=== PATIENT | female | born 1970 | race Caucasian/White ===

== ENCOUNTER 2017-10-25 12:46 | Emergency (ER) | payer MEDICAID, SELFPAY ==
[2017-10-25 12:55] VITALS: PULSE 70; RESP 18; TEMP 37.7; O2SAT 95; BMI 28.3
[2017-10-25 14:59] VITALS: BP 111/67; PULSE 109; RESP 18; TEMP 36.8; O2SAT 93; BMI 26.4
--- NOTE | 2017-10-25 15:14 | XR_ITS ---
XR chest 2V HISTORY: ITS.REASON: COUGH ORDERING PHYSICIAN: Daily Mcgee PATIENT AGE: 47 years COMPARISON: 07/15/2017 FINDINGS: The cardiomediastinal silhouette and pulmonary vascularity are within normal limits. There is dense consolidation involving the right upper lobe centrally and laterally as well as consolidation in the right lower lobe consistent with right-sided pneumonia. Left lung is clear. No obvious effusion There is severe wedging of L2 with kyphosis at the thoracolumbar junction. . This was seen on previous MRI of 02/23/2012 IMPRESSION: Right upper and right lower lobe pneumonia Wedge compression changes involving L2 which is chronic with kyphosis
[2017-10-25 15:17] LABS: UTC Influenza A Antigen Negative (Negative); UTC Influenza B Antigen Negative (Negative)
--- NOTE | 2017-10-25 16:08 | HMH.EDUTC ---
[facility] [place] Clinical Impression: Pneumonia involving right lung Qualifiers: Pneumonia type: due to unspecified organism Lung location: unspecified part of lung Qualified Code(s): J18.9 - Pneumonia, unspecified organism Disposition: Still a Patient Condition on Discharge: Fair Time of Disposition: 16:34 (transfer to ER) Medical Decision Making Vital Signs: 10/25/17 12:55 10/25/17 14:59 Temperature 99.8 F H 98.2 F Temperature Source Temporal Artery Scan Temporal Artery Scan Pulse Rate [Left Brachial] 70 109 H Respiratory Rate 18 18 Blood Pressure [123/78] 111/67 Blood Pressure Mean [123/78] 81 Blood Pressure Source [123/78] Automatic Cuff Automatic Cuff Blood Pressure Position [123/78] Supine Sitting 02 Sat by Pulse Oximetry 85 L 93 L Oxygen Delivery Method Room Air Room Air - Lab Data Lab Results 10/25/17 15:16: Influenza Type A Ag Negative, Influenza Type B Ag Negative - Physician Consults Physician Consulted: Amaya Rodriguez APRN Time: 16:25 Reason -: Pt condition Comment/Response: Dr. Cat not available, spoke to REAGAN Conde. Discussed PMHx, HPI, today's VS and exam and CXR results. Wants transfer to ER for full PNA workup to include but not limited to CBC, cr, lactic. Call oncall with results and they will decide at that time about admission. Additional Consult: Dr. Smith, ARTISTIC DIRECTOR Time: 16:30 Reason -: Pt condition Comment/Response: Discussed PMHx, HPI, exam, VS and CXR as well as discussion w/ PCP. Will work patient up and contact oncall provider regarding admission. - Bulmaro Inquiry Pt receiving controlled substance: No [facility] [place] - General Stated complaint: cough fever Time Seen by Provider: 10/25/17 16:08 Mode of Arrival: Ambulatory Source of Information: Patient Limitations: No Limitations Description of Symptoms (Recalled from Triage Doc. by RN): FEVER, COUGH, CONGESTION X2 DAYS HEENT Symptoms (Recalled from RN notes): Yes Resp Symptoms (Recalled from RN notes): No Skin Symptoms (Recalled from RN notes): No MS Symptoms (Recalled from RN notes): No Functional Status (Recalled from RN notes): N - History of Present Illness Provider Complaint: c/o fever and cough. Worried about flu or pneumonia. Started with fever and mild cough last night. 102-104. Cough worse today. Yellow sputum. Fever side sawyer has helped. last dose before coming to clinic. Pt w/ same symptoms fall 2016. I saw pt here in [facility], pt was admitted, later decompensated on floor and was airlifted to where she reports she stayed for nearly 2 weeks. Reporting mild SOA but not bad . Hx of tobacco abuse. - Related Data Home Medications Medication Instructions Recorded Confirmed Cyclobenzaprine HCl [Flexeril 10mg 10 mg PO BID 10/25/17 10/25/17 tablet] Nitrofurantoin Monohyd/M-Cryst 100 mg PO DAILY 10/25/17 10/25/17 [Macrobid 100 mg Capsule] Oxycodone HCl/Acetaminophen 1 tab PO BID 10/25/17 10/25/17 [Percocet 5/325mg tablet] buPROPion HCl [Wellbutrin 100mg 50 mg PO BID 10/25/17 10/25/17 Tablet] clonazePAM [Klonopin 0.5mg tablet] 0 mg PO DAILY 10/25/17 10/25/17 Allergies Allergy/AdvReac Type Severity Reaction Status Date / Time Iodinated Contrast Media - Allergy Unknown I-ITCHING Verified 10/25/17 15:05 Oral and [Iodinated Contrast Media - IV Dye] - Worker's Comp Is this a Worker's Comp case?: No [facility] History I have reviewed the patient's past medical history: Yes Medical History: Reports:: Chronic Obstructive Pulmonary Disease (COPD) Comment: anxiety, chronic pain, spinal surgery Other Surgeries: Yes: Other (unknown spinal surgery, aspeenic) - *Social History Smoking Status: Current every day smoker Tobacco Type: cigarettes Alcohol Intake: never - Psychiatric History Expresses thoughts of harming self/others: None Suicide Plan Description: No Plan ROS Obtained: Yes All systems reviewed & no additional complaints except as noted - Constitutional Reports
--- NOTE | 2017-10-25 16:14 | ED_ITS ---
[facility] [place] Disposition Clinical Impression: Pneumonia involving right lung Qualifiers: Pneumonia type: due to unspecified organism Lung location: unspecified part of lung Qualified Code(s): J18.9 - Pneumonia, unspecified organism Disposition: Still a Patient Condition on Discharge: Fair Time of Disposition: 16:34 (transfer to ER) Medical Decision Making Vital Signs: 10/25/17 12:55 10/25/17 14:59 Temperature 99.8 F H 98.2 F Temperature Source Temporal Artery Scan Temporal Artery Scan Pulse Rate [Left Brachial] 70 109 H Respiratory Rate 18 18 Blood Pressure [123/78] 111/67 Blood Pressure Mean [123/78] 81 Blood Pressure Source [123/78] Automatic Cuff Automatic Cuff Blood Pressure Position [123/78] Supine Sitting 02 Sat by Pulse Oximetry 85 L 93 L Oxygen Delivery Method Room Air Room Air - Lab Data Lab Results 10/25/17 15:16: Influenza Type A Ag Negative, Influenza Type B Ag Negative - Physician Consults Physician Consulted: Amaya Rodriguez APRN Time: 16:25 Reason -: Pt condition Comment/Response: Dr. Cat not available, spoke to REAGAN Conde. Discussed PMHx, HPI, today's VS and exam and CXR results. Wants transfer to ER for full PNA workup to include but not limited to CBC, cr, lactic. Call oncall with results and they will decide at that time about admission. Additional Consult: Dr. Smith, PORTFOLIO MANAGER Time: 16:30 Reason -: Pt condition Comment/Response: Discussed PMHx, HPI, exam, VS and CXR as well as discussion w / PCP. Will work patient up and contact oncall provider regarding admission. - Bulmaro Inquiry Pt receiving controlled substance: No [facility] [place] HPI - General Stated complaint: cough fever Time Seen by Provider: 10/25/17 16:08 Mode of Arrival: Ambulatory Source of Information: Patient Limitations: No Limitations Description of Symptoms (Recalled from Triage Doc. by RN): FEVER, COUGH, CONGESTION X2 DAYS HEENT Symptoms (Recalled from RN notes): Yes Resp Symptoms (Recalled from RN notes): No Skin Symptoms (Recalled from RN notes): No MS Symptoms (Recalled from RN notes): No Functional Status (Recalled from RN notes): N - History of Present Illness Provider Complaint: c/o fever and cough. Worried about flu or pneumonia. Started with fever and mild cough last night. 102-104. Cough worse today. Yellow sputum. Fever social sciences research scientist has helped. last dose before coming to clinic. Pt w / same symptoms fall 2016. I saw pt here in [facility], pt was admitted, later decompensated on floor and was airlifted to where she reports she stayed for nearly 2 weeks. Reporting mild SOA but not bad . Hx of tobacco abuse. - Related Data Home Medications Medication Instructions Recorded Confirmed Cyclobenzaprine HCl [Flexeril 10mg 10 mg PO BID 10/25/17 10/25/17 tablet] Nitrofurantoin Monohyd/M-Cryst 100 mg PO DAILY 10/25/17 10/25/17 [Macrobid 100 mg Capsule] Oxycodone HCl/Acetaminophen 1 tab PO BID 10/25/17 10/25/17 [Percocet 5/325mg tablet] buPROPion HCl [Wellbutrin 100mg 50 mg PO BID 10/25/17 10/25/17 Tablet] clonazePAM [Klonopin 0.5mg tablet] 0 mg PO DAILY 10/25/17 10/25/17 Allergies Allergy/AdvReac Type Severity Reaction Status Date / Time Iodinated Contrast Media - Allergy Unknown I-ITCHING Verified 10/25/17 15:05 Oral and [Iodinated Contrast Media - IV Dye] - Wo
[2017-10-25 16:44] VITALS: BP 105/70; PULSE 106; RESP 20; TEMP 37; O2SAT 91; BMI 26.4
[2017-10-25 17:06] LABS: ABG HCO3 22.7 mmhg (22.0-26.0); ABG Oxygen Saturation 92 % (90-100); ABG PCO2 37.2 mmhg (35.0-45.0); ABG PO2 60.8 mmhg (80-100); ABG TCO2 23.9 mmhg (23-27); Allen's Test ACCEPTABLE; Oxygen ROOM AIR %
[2017-10-25 17:07] LABS: Source R RADIAL
--- NOTE | 2017-10-25 17:50 | HMH.EDSOB ---
ED Disposition Clinical Impression: Pneumonia involving right lung Qualifiers: Pneumonia type: due to unspecified organism Lung location: unspecified part of lung Qualified Code(s): J18.9 - Pneumonia, unspecified organism Sepsis Qualifiers: Sepsis type: sepsis due to unspecified organism Qualified Code(s): A41.9 - Sepsis, unspecified organism Disposition: Xfer Short-Term Hosp Condition on Discharge: Serious Referrals: Jace Cat MD [Primary Care Provider] - Time of Disposition: 20:00 - Critical Care Critical Care Time: Yes Attestation: On 10/25/17, the high probability of a clinically significant, sudden or life threatening deterioration of the following system(s) required my full and direct attention, intervention and personal management. The time I documented below is in addition to time spent performing reported procedures but includes the following listed in this critical care notation. Multiple consultations, multiple rechecks, multiple d/w patient and interventions. Total Critical Care Time: 55 Vital system(s) involved:: Circulatory Failure, Respiratory Failure, Shock (Septic) My critical care processes included: Assessment & monitoring of V/S, Initial and Re-exams, Data Review/Interpretation, Coordinating Care, Medication Orders and management, Documentation Medical Decision Making Vital Signs: 10/25/17 12:55 10/25/17 14:59 10/25/17 16:44 Temperature 99.8 F H 98.2 F 98.6 F Temperature Source Temporal Artery Scan Temporal Artery Scan Oral Pulse Rate [Left Brachial] 70 109 H 106 H Respiratory Rate 18 18 20 Blood Pressure [123/78] 111/67 105/70 Blood Pressure Mean [123/78] 81 81 Blood Pressure Source [123/78] Automatic Cuff Automatic Cuff Automatic Cuff Blood Pressure Position [123/78] Supine Sitting Sitting 02 Sat by Pulse Oximetry 95 93 L 91 L Oxygen Delivery Method Room Air Room Air Room Air - Lab Data Lab Results 10/25/17 15:16: Influenza Type A Ag Negative, Influenza Type B Ag Negative 10/25/17 17:03: Specimen Source R radial, O2 % Room air, ABG pH 7.40, ABG pCO2 37.2, ABG pO2 60.8 L, ABG HCO3 22.7, ABG Total CO2 23.9, ABG O2 Saturation 92, ABG Base Excess -2.0, Jensen Test Acceptable 10/25/17 17:05: WBC 30.9 H*, RBC 4.21, Hgb 12.9, Hct 41.7, MCV 99.0, MCH 30.8, MCHC 31.1 L, RDW 14.3, Plt Count 393, MPV 8.1, Neut % (Auto) 78.7, Lymph % (Auto) 16.4, [place] % (Auto) 3.8, Eos % (Auto) 0.6, Baso % (Auto) 0.5, Neut # (Auto) 24.3 H, Lymph # (Auto) 5.1 H, [place] # (Auto) 1.2 H, Eos # (Auto) 0.2, Baso # (Auto) 0.2, Total Counted 200, Neutrophils % (Manual) 62, Band Neutrophils % 6.0, Lymphocytes % (Manual) 20, Monocytes % (Manual) 9, Metamyelocytes % 3.5 H, Platelet Estimate Normal, RBC Morphology Not Reportable, Hypochromasia 1+, Macrocytosis 1+ 10/25/17 17:05: Sodium 136, Potassium 3.8, Chloride 102, Carbon Dioxide 26, Anion Gap 11.8, BUN 12, Creatinine 0.89, Estimated Creat Clear 79, Estimated GFR > 60, Est GFR ( Amer) > 60, Glucose 110 H, Calcium 8.6, Total Bilirubin 0.5, AST 50 H, ALT 59, Alkaline Phosphatase 93, Total Protein 7.3, Albumin 3.0 L, Globulin 4.3 H, Albumin/Globulin Ratio 0.7 L 10/25/17 17:05: Lactic Acid 2.1 H Result diagrams: 10/25/17 17:05 10/25/17 17:05 Orders (Tests/Meds): ED MEDICATIONS Discontinued Medications Generic Name Dose Route Start Last Admin Trade Name Freq PRN Reason Stop Dose Admin Azithromycin 500 mg 10/25/17 20:03 Zithromax 250mg Tablet PO 10/25/17 20:04 ONCE ONE Ceftriaxone Sodium 1 gm 10/25/17 20:04 Rocephin 1gm Vial IM 10/25/17 20:05 ONCE ONE Vancomycin HCl 1,250 mg/ 250 mls @ 125 mls/hr 10/25/17 18:18 10/25/17 18:35 Sodium Chloride IV 10/25/17 18:19 125 mls/hr ONCE ONE Administration Lactated Ringer's 1,000 ml 10/25/17 18:54 10/25/17 19:00 Lactated Ringer's 1000 Ml Bag IV 10/25/17 18:55 1,000 ml BOLUS ONE Administration Lidocaine HCl 0 ml 10/25/17 20:04 Lidocaine 1% 10ml Mdv IM
--- NOTE | 2017-10-25 17:53 | ED_ITS ---
ED Disposition Clinical Impression: Pneumonia involving right lung Qualifiers: Pneumonia type: due to unspecified organism Lung location: unspecified part of lung Qualified Code(s): J18.9 - Pneumonia, unspecified organism Sepsis Qualifiers: Sepsis type: sepsis due to unspecified organism Qualified Code(s): A41.9 - Sepsis, unspecified organism Disposition: Xfer Short-Term Hosp Condition on Discharge: Serious Referrals: Jace Cat MD [Primary Care Provider] - Time of Disposition: 20:00 - Critical Care Critical Care Time: Yes Attestation: On 10/25/17, the high probability of a clinically significant, sudden or life threatening deterioration of the following system(s) required my full and direct attention, intervention and personal management. The time I documented below is in addition to time spent performing reported procedures but includes the following listed in this critical care notation. Multiple consultations, multiple rechecks, multiple d/w patient and interventions. Total Critical Care Time: 55 Vital system(s) involved:: Circulatory Failure, Respiratory Failure, Shock ( Septic) My critical care processes included: Assessment & monitoring of V/S, Initial and Re-exams, Data Review/Interpretation, Coordinating Care, Medication Orders and management, Documentation Medical Decision Making Vital Signs: 10/25/17 12:55 10/25/17 14:59 10/25/17 16:44 Temperature 99.8 F H 98.2 F 98.6 F Temperature Source Temporal Artery Scan Temporal Artery Scan Oral Pulse Rate [Left Brachial] 70 109 H 106 H Respiratory Rate 18 18 20 Blood Pressure [123/78] 111/67 105/70 Blood Pressure Mean [123/78] 81 81 Blood Pressure Source [123/78] Automatic Cuff Automatic Cuff Automatic Cuff Blood Pressure Position [123/78] Supine Sitting Sitting 02 Sat by Pulse Oximetry 95 93 L 91 L Oxygen Delivery Method Room Air Room Air Room Air - Lab Data Lab Results 10/25/17 15:16: Influenza Type A Ag Negative, Influenza Type B Ag Negative 10/25/17 17:03: Specimen Source R radial, O2 % Room air, ABG pH 7.40, ABG pCO2 37.2, ABG pO2 60.8 L, ABG HCO3 22.7, ABG Total CO2 23.9, ABG O2 Saturation 92, ABG Base Excess -2.0, Jensen Test Acceptable 10/25/17 17:05: WBC 30.9 H*, RBC 4.21, Hgb 12.9, Hct 41.7, MCV 99.0, MCH 30.8, MCHC 31.1 L, RDW 14.3, Plt Count 393, MPV 8.1, Neut % (Auto) 78.7, Lymph % (Auto ) 16.4, [place] % (Auto) 3.8, Eos % (Auto) 0.6, Baso % (Auto) 0.5, Neut # (Auto) 24.3 H, Lymph # (Auto) 5.1 H, [place] # (Auto) 1.2 H, Eos # (Auto) 0.2, Baso # ( Auto) 0.2, Total Counted 200, Neutrophils % (Manual) 62, Band Neutrophils % 6.0 , Lymphocytes % (Manual) 20, Monocytes % (Manual) 9, Metamyelocytes % 3.5 H, Platelet Estimate Normal, RBC Morphology Not Reportable, Hypochromasia 1+, Macrocytosis 1+ 10/25/17 17:05: Sodium 136, Potassium 3.8, Chloride 102, Carbon Dioxide 26, Anion Gap 11.8, BUN 12, Creatinine 0.89, Estimated Creat Clear 79, Estimated GFR > 60, Est GFR ( Amer) > 60, Glucose 110 H, Calcium 8.6, Total Bilirubin 0.5, AST 50 H, ALT 59, Alkaline Phosphatase 93, Total Protein 7.3, Albumin 3.0 L, Globulin 4.3 H, Albumin/Globulin Ratio 0.7 L 10/25/17 17:05: Lactic Acid 2.1 H Result diagrams: 10/25/17 17:05 10/25/17 17:05 Orders (Tests/Meds): ED MEDICATIONS Discontinued Medications Generic Name Dose Route Start Last Admin Trade Name Freq PRN Reason Stop Dose Admin Azithromycin 500 mg 10/25/17 20:03 Zithromax 250mg Tablet PO
--- NOTE | 2017-10-25 18:20 | PC.NURSE ---
SMITH ADVISED TO ADMINISTERED 1.25GM VANCOMYCIN LOADING DOSE FOLLOWED BY 1GM IV Q12H
[2017-10-25 18:25] LABS: Basophils # 0.2 K/mm3 (0-0.2); Basophils % 0.5 % (0.1-2.0); Eosinophils # 0.2 K/mm3 (0.0-0.4); Eosinophils % 0.6 % (0.1-12.0); Hematocrit 41.7 % (37.0-47.0); Hemoglobin 12.9 g/dL (12.2-16.2); Lymphocytes # 5.1 K/mm3 (0.7-4.5); Lymphocytes % 16.4 K/mm3 (10-50); Mean Corpuscular HGB Conc 31.1 g/dL (31.8-35.4); Mean Corpuscular Hemoglobin 30.8 pg (27.0-31.2); Mean Platelet Volume 8.1 fl (7.4-10.4); Monocytes # 1.2 K/mm3 (0.1-1.0); Monocytes % 3.8 % (1.7-9.3); Neutrophils # 24.3 K/mm3 (1.8-7.8); Neutrophils % 78.7 % (37.0-80.0); Platelet Count 393 K/mm3 (142-424); Red Blood Count 4.21 M/mm3 (4.20-5.40); Red Cell Distribution Width 14.3 % (11.5-17.5); White Blood Count 30.9 K/mm3 (4.8-10.8)
[2017-10-25 18:32] LABS: Alanine Aminotransferase 59 U/L (12-78); Albumin/Globulin Ratio 0.7 (1.1-1.8); Alkaline Phosphatase 93 U/L (46-116); Anion Gap 11.8 mEq/L (5-15); Aspartate Amino Transferase 50 U/L (15-37); Bilirubin,Total 0.5 mg/dL (0.2-1.0); Blood Urea Nitrogen 12 mg/dL (7-18); Calcium 8.6 mg/dL (8.5-10.1); Carbon Dioxide 26 mmol/L (21.0-32.0); Chloride 102 mmol/L (98-107); Creatinine Clearance Estimated 79 mg/ml (0-300); Creatinine,Serum 0.89 mg/dL (0.55-1.02); Estimated Glomerular Filt Rate > 60 ml/min (>60); GFR (African American) > 60 ML/MIN (>60); Globulin 4.3 gm/dl (1.3-3.2); Glucose 110 mg/dL (74-106); Potassium 3.8 mmoL/L (3.5-5.1); Sodium 136 mmol/L (136-145); Total Protein,Serum 7.3 gm/dL (6.4-8.2)
[2017-10-25 18:39] LABS: MANUAL DIFFERENTIAL MANUAL DIFFERENTIAL (MANUAL DIFF)
--- NOTE | 2017-10-25 18:49 | PC.NURSE ---
Dr Murry paged to consult on patient.
--- NOTE | 2017-10-25 18:50 | PC.NURSE ---
Message left for Dr. Murry.
--- NOTE | 2017-10-25 18:53 | PC.NURSE ---
PT REQUESTS TO STAY AT [facility]. HOWEVER, MD IS INSISTENT SHE LEAVE AND BE ADMITTED ELSEWHERE. IS TALKING WITH DR FITZPATRICK WHO IS COVERING FOR DR BRAGA. CALL PLACED TO [facility]. AWAITING RETURN FROM [facility] COMPLAINT INVESTIGATOR CAGE FIGHTER
[2017-10-25 18:56] LABS: Lactic Acid 2.1 mmol/L (0.4-2.0)
--- NOTE | 2017-10-25 19:03 | PC.NURSE ---
[facility] medical exchange called for the hospitalist to be paged.
[2017-10-25 19:30] LABS: Lymphocytes % 20 % (10-50); Metamyelocytes % 3.5 (0-1); Monocytes % 9 % (2-9); Neutrophils % 62 % (42-76); Platelet Estimate Normal; Total Cells Counted 200
[2017-10-25 19:31] LABS: Hypochromasia 1+; Macrocytosis 1+
--- NOTE | 2017-10-25 20:00 | PC.NURSE ---
[facility] requesting facesheet.
--- NOTE | 2017-10-25 20:11 | PC.NURSE ---
face sheet sent to [facility]. Caller stated they would call for report soon.
[2017-10-25 22:18] LABS: Reflex Lactic Add Lactic Reflex
== END 2017-10-25 21:07 | disposition short-term general hospital (02) ==
LOC: ER 13:01 → UTC 13:31 → ER 16:38
PROVIDERS: Nurse Practitioner Family; Emergency Provider Emergency Medicine; Family Provider Internal Medicine Adolescent Medicine; PCP Internal Medicine Adolescent Medicine
DX: J18.9 Pneumonia, unspecified organism (principal); A41.9 Sepsis, unspecified organism; J44.9 Chronic obstructive pulmonary disease, unspecified; F17.210 Nicotine dependence, cigarettes, uncomplicated; Z79.899 Other long term (current) drug therapy
CPT/HCPCS: 71046; 80053; 82803; 83605; 85007; 85025; 85060; 87276; 96367; 99283; J3370

== ENCOUNTER → 2017-11-15 07:13 | Outpatient (CLI) | payer MEDICAID, SELFPAY ==
[2017-11-15 13:50] LABS: Basophils # 0.1 K/mm3 (0-0.2); Basophils % 0.8 % (0.1-2.0); Eosinophils # 0.3 K/mm3 (0.0-0.4); Eosinophils % 2.5 % (0.1-12.0); Hematocrit 43.9 % (37.0-47.0); Hemoglobin 13.6 g/dL (12.2-16.2); Lymphocytes # 6.6 K/mm3 (0.7-4.5); Lymphocytes % 62.6 K/mm3 (10-50); Mean Corpuscular Hemoglobin 30.3 pg (27.0-31.2); Mean Corpuscular Volume 97.5 fl (81-99); Mean Platelet Volume 8.3 fl (7.4-10.4); Monocytes # 0.7 K/mm3 (0.1-1.0); Monocytes % 6.9 % (1.7-9.3); Neutrophils # 2.9 K/mm3 (1.8-7.8); Neutrophils % 27.3 % (37.0-80.0); Platelet Count 708 K/mm3 (142-424); Red Blood Count 4.51 M/mm3 (4.20-5.40); Red Cell Distribution Width 14.2 % (11.5-17.5); White Blood Count 10.5 K/mm3 (4.8-10.8)
[2017-11-15 14:08] LABS: Anion Gap 15.4 mEq/L (5-15); Carbon Dioxide 27 mmol/L (21.0-32.0); Chloride 101 mmol/L (98-107); Potassium 4.4 mmoL/L (3.5-5.1); Sodium 139 mmol/L (136-145)
[2017-11-15 14:09] LABS: Blood Urea Nitrogen 7 mg/dL (7-18); Creatinine,Serum 0.51 mg/dL (0.55-1.02); Estimated Glomerular Filt Rate 130 ml/min (>60); GFR (African American) 157 ML/MIN (>60); Glucose 87 mg/dL (74-106)
[2017-11-15 14:39] LABS: MANUAL DIFFERENTIAL MANUAL DIFFERENTIAL (MANUAL DIFF)
[2017-11-15 14:43] LABS: Eosinophils % 5 % (0-3); Lymphocytes % 47 % (10-50); Monocytes % 9 % (2-9); Neutrophils % 38 % (42-76); Platelet Estimate Moderate Increase; Target Cells 1+; Total Cells Counted 100
== END ==
PROVIDERS: PCP Internal Medicine Adolescent Medicine; Visit Provider Internal Medicine Adolescent Medicine
DX: J18.1 Lobar pneumonia, unspecified organism (principal)
CPT/HCPCS: 36415; 80048; 85007; 85025

== ENCOUNTER → 2018-03-06 08:39 | Outpatient (CLI) | payer MEDICAID, SELFPAY ==
[2018-03-06 13:48] LABS: Basophils # 0.1 K/mm3 (0-0.2); Basophils % 0.8 % (0.1-2.0); Eosinophils # 0.3 K/mm3 (0.0-0.4); Eosinophils % 2.8 % (0.1-12.0); Hematocrit 39.2 % (37.0-47.0); Hemoglobin 12.7 g/dL (12.2-16.2); Lymphocytes # 3.6 K/mm3 (0.7-4.5); Lymphocytes % 30.7 K/mm3 (10-50); Mean Corpuscular HGB Conc 32.4 g/dL (31.8-35.4); Mean Corpuscular Hemoglobin 31.5 pg (27.0-31.2); Mean Corpuscular Volume 97.1 fl (81-99); Mean Platelet Volume 8.4 fl (7.4-10.4); Monocytes # 0.8 K/mm3 (0.1-1.0); Monocytes % 6.7 % (1.7-9.3); Neutrophils # 6.9 K/mm3 (1.8-7.8); Neutrophils % 58.9 % (37.0-80.0); Platelet Count 494 K/mm3 (142-424); Red Blood Count 4.04 M/mm3 (4.20-5.40); Red Cell Distribution Width 13.3 % (11.5-17.5); White Blood Count 11.7 K/mm3 (4.8-10.8)
[2018-03-06 14:34] LABS: Alanine Aminotransferase 42 U/L (12-78); Albumin Level 3.5 gm/dL (3.4-5.0); Albumin/Globulin Ratio 0.9 (1.1-1.8); Alkaline Phosphatase 65 U/L (46-116); Anion Gap 13.5 mEq/L (5-15); Aspartate Amino Transferase 41 U/L (15-37); Bilirubin,Total 0.3 mg/dL (0.2-1.0); Blood Urea Nitrogen 11 mg/dL (7-18); Carbon Dioxide 26 mmol/L (21.0-32.0); Chloride 106 mmol/L (98-107); Creatinine,Serum 0.52 mg/dL (0.55-1.02); Estimated Glomerular Filt Rate 127 ml/min (>60); GFR (African American) 154 ML/MIN (>60); Globulin 3.8 gm/dl (1.3-3.2); Glucose 104 mg/dL (74-106); Potassium 4.5 mmoL/L (3.5-5.1); Sodium 141 mmol/L (136-145); Total Protein,Serum 7.3 gm/dL (6.4-8.2)
== END ==
PROVIDERS: Visit Provider Internal Medicine Adolescent Medicine
DX: J44.9 Chronic obstructive pulmonary disease, unspecified (principal); B18.2 Chronic viral hepatitis C
CPT/HCPCS: 36415; 80053; 85025

== ENCOUNTER → 2018-08-14 07:28 | Outpatient (CLI) | payer MEDICAID, SELFPAY ==
[2018-08-14 14:22] LABS: Basophils # 0.1 K/mm3 (0-0.2); Basophils % 0.5 % (0.1-2.0); Eosinophils # 0.3 K/mm3 (0.0-0.4); Eosinophils % 2.3 % (0.1-12.0); Hematocrit 40.4 % (37.0-47.0); Hemoglobin 12.7 g/dL (12.2-16.2); Lymphocytes # 4.7 K/mm3 (0.7-4.5); Lymphocytes % 39.5 K/mm3 (10-50); Mean Corpuscular HGB Conc 31.4 g/dL (31.8-35.4); Mean Corpuscular Volume 98.8 fl (81-99); Mean Platelet Volume 8.1 fl (7.4-10.4); Monocytes # 0.7 K/mm3 (0.1-1.0); Monocytes % 6.1 % (1.7-9.3); Neutrophils # 6.1 K/mm3 (1.8-7.8); Neutrophils % 51.6 % (37.0-80.0); Platelet Count 605 K/mm3 (142-424); Red Blood Count 4.09 M/mm3 (4.20-5.40); Red Cell Distribution Width 13.8 % (11.5-17.5); White Blood Count 11.8 K/mm3 (4.8-10.8)
== END ==
PROVIDERS: PCP Internal Medicine Adolescent Medicine; Visit Provider Internal Medicine
DX: D72.829 Elevated white blood cell count, unspecified (principal)
CPT/HCPCS: 36415; 85025

== ENCOUNTER → 2018-08-26 08:49 | Outpatient (CLI) | payer MEDICAID, SELFPAY ==
[2018-08-26 10:43] LABS: Alanine Aminotransferase 23 U/L (12-78); Albumin Level 3.9 gm/dL (3.4-5.0); Alkaline Phosphatase 81 U/L (46-116); Anion Gap 13.2 mEq/L (5-15); Aspartate Amino Transferase 19 U/L (15-37); Bilirubin,Total 0.3 mg/dL (0.2-1.0); Blood Urea Nitrogen 11 mg/dL (7-18); Calcium 9.3 mg/dL (8.5-10.1); Carbon Dioxide 28 mmol/L (21.0-32.0); Chloride 104 mmol/L (98-107); Creatinine,Serum 0.62 mg/dL (0.55-1.02); Estimated Glomerular Filt Rate 103 ml/min (>60); GFR (African American) 125 ML/MIN (>60); Globulin 4.1 gm/dl (1.3-3.2); Glucose 104 mg/dL (74-106); Potassium 5.2 mmoL/L (3.5-5.1); Sodium 140 mmol/L (136-145)
== END ==
PROVIDERS: PCP Internal Medicine Adolescent Medicine; Visit Provider Internal Medicine
DX: B19.20 Unspecified viral hepatitis C without hepatic coma (principal); Z79.899 Other long term (current) drug therapy
CPT/HCPCS: 36415; 80053; 82776; 87522

== ENCOUNTER → 2018-08-29 09:12 | Outpatient (CLI) | payer MEDICAID, SELFPAY ==
[2018-08-29 10:41] LABS: Basophils # 0.1 K/mm3 (0-0.2); Basophils % 0.7 % (0.1-2.0); Eosinophils # 0.2 K/mm3 (0.0-0.4); Eosinophils % 1.9 % (0.1-12.0); Hematocrit 43.2 % (37.0-47.0); Hemoglobin 13.4 g/dL (12.2-16.2); Lymphocytes % 38.3 % (10-50); Mean Corpuscular Hemoglobin 30.5 pg (27.0-31.2); Mean Corpuscular Volume 98.4 fl (81-99); Mean Platelet Volume 7.3 fl (7.4-10.4); Monocytes # 0.6 K/mm3 (0.1-1.0); Monocytes % 5.6 % (1.7-9.3); Neutrophils # 5.6 K/mm3 (1.8-7.8); Neutrophils % 53.4 % (37.0-80.0); Platelet Count 641 K/mm3 (142-424); Red Blood Count 4.39 M/mm3 (4.20-5.40); Red Cell Distribution Width 13.8 % (11.5-17.5); White Blood Count 10.5 K/mm3 (4.8-10.8)
== END ==
PROVIDERS: Visit Provider Internal Medicine
DX: B19.20 Unspecified viral hepatitis C without hepatic coma (principal); Z79.899 Other long term (current) drug therapy
CPT/HCPCS: 36415; 85025

== ENCOUNTER → 2018-09-13 11:18 | Outpatient (CLI) | payer MEDICAID, SELFPAY ==
[2018-09-13 11:59] LABS: Basophils # 0.1 K/mm3 (0-0.2); Basophils % 0.7 % (0.1-2.0); Eosinophils # 0.2 K/mm3 (0.0-0.4); Lymphocytes # 3.6 K/mm3 (0.7-4.5); Mean Corpuscular HGB Conc 31.8 g/dL (31.8-35.4); Mean Corpuscular Hemoglobin 30.9 pg (27.0-31.2); Mean Corpuscular Volume 97.2 fl (81-99); Mean Platelet Volume 7.6 fl (7.4-10.4); Monocytes # 0.6 K/mm3 (0.1-1.0); Monocytes % 5.2 % (1.7-9.3); Neutrophils # 6.2 K/mm3 (1.8-7.8); Neutrophils % 58.2 % (37.0-80.0); Platelet Count 563 K/mm3 (142-424); Red Blood Count 4.22 M/mm3 (4.20-5.40); Red Cell Distribution Width 14.2 % (11.5-17.5); White Blood Count 10.6 K/mm3 (4.8-10.8)
[2018-09-13 12:07] LABS: INR 1.04 (0.9-1.1); Prothrombin Time 10.7 seconds (9.4-11.8)
[2018-09-13 12:08] LABS: Urine Pregnancy, HCG Qual. Negative (Negative)
[2018-09-13 13:01] LABS: Alanine Aminotransferase 23 U/L (12-78); Albumin Level 3.5 gm/dL (3.4-5.0); Albumin/Globulin Ratio 0.9 (1.1-1.8); Alkaline Phosphatase 77 U/L (46-116); Anion Gap 12.4 mEq/L (5-15); Aspartate Amino Transferase 14 U/L (15-37); Bilirubin,Total 0.3 mg/dL (0.2-1.0); Blood Urea Nitrogen 9 mg/dL (7-18); Calcium 8.7 mg/dL (8.5-10.1); Carbon Dioxide 27 mmol/L (21.0-32.0); Chloride 106 mmol/L (98-107); Creatinine,Serum 0.54 mg/dL (0.55-1.02); Estimated Glomerular Filt Rate 121 ml/min (>60); GFR (African American) 146 ML/MIN (>60); Glucose 103 mg/dL (74-106); Potassium 4.4 mmoL/L (3.5-5.1); Sodium 141 mmol/L (136-145); Total Protein,Serum 7.5 gm/dL (6.4-8.2)
== END ==
PROVIDERS: Visit Provider Internal Medicine
DX: B19.20 Unspecified viral hepatitis C without hepatic coma (principal); Z79.899 Other long term (current) drug therapy
CPT/HCPCS: 36415; 80053; 81025; 85025; 85610; 87522

== ENCOUNTER → 2018-10-07 10:22 | Outpatient (CLI) | payer MEDICAID, SELFPAY ==
[2018-10-07 10:54] LABS: INR 1.06 (0.9-1.1); Prothrombin Time 10.9 seconds (9.4-11.8)
[2018-10-07 10:57] LABS: Basophils # 0.1 K/mm3 (0-0.2); Basophils % 0.4 % (0.1-2.0); Eosinophils # 0.3 K/mm3 (0.0-0.4); Eosinophils % 1.9 % (0.1-12.0); Hematocrit 43.6 % (37.0-47.0); Hemoglobin 13.9 g/dL (12.2-16.2); Lymphocytes # 3.4 K/mm3 (0.7-4.5); Lymphocytes % 22.5 % (10-50); Mean Corpuscular HGB Conc 31.8 g/dL (31.8-35.4); Mean Corpuscular Hemoglobin 30.9 pg (27.0-31.2); Mean Platelet Volume 9.5 fl (7.4-10.4); Monocytes # 0.8 K/mm3 (0.1-1.0); Monocytes % 4.9 % (1.7-9.3); Neutrophils # 10.8 K/mm3 (1.8-7.8); Neutrophils % 70.3 % (37.0-80.0); Platelet Count 352 K/mm3 (142-424); Red Blood Count 4.49 M/mm3 (4.20-5.40); Red Cell Distribution Width 13.9 % (11.5-17.5); White Blood Count 15.3 K/mm3 (4.8-10.8)
[2018-10-07 10:58] LABS: MANUAL DIFFERENTIAL MANUAL DIFFERENTIAL (MANUAL DIFF)
[2018-10-07 11:02] LABS: Urine Pregnancy, HCG Qual. Negative (Negative)
[2018-10-07 12:22] LABS: Lymphocytes % 20 % (10-50); Monocytes % 2 % (2-9); Neutrophils % 78 % (42-76); Platelet Estimate Normal; Total Cells Counted 100
[2018-10-07 12:45] LABS: Alanine Aminotransferase 26 U/L (12-78); Albumin Level 3.6 gm/dL (3.4-5.0); Albumin/Globulin Ratio 0.9 (1.1-1.8); Alkaline Phosphatase 83 U/L (46-116); Anion Gap 11.9 mEq/L (5-15); Aspartate Amino Transferase 16 U/L (15-37); Bilirubin,Total 0.2 mg/dL (0.2-1.0); Blood Urea Nitrogen 12 mg/dL (7-18); Calcium 8.7 mg/dL (8.5-10.1); Carbon Dioxide 29 mmol/L (21.0-32.0); Chloride 105 mmol/L (98-107); Creatinine,Serum 0.82 mg/dL (0.55-1.02); Estimated Glomerular Filt Rate 75 ml/min (>60); GFR (African American) 90 ML/MIN (>60); Glucose 53 mg/dL (74-106); Potassium 3.9 mmoL/L (3.5-5.1); Sodium 142 mmol/L (136-145); Total Protein,Serum 7.6 gm/dL (6.4-8.2)
== END ==
PROVIDERS: Visit Provider Internal Medicine
DX: B19.20 Unspecified viral hepatitis C without hepatic coma (principal); Z79.899 Other long term (current) drug therapy
CPT/HCPCS: 36415; 80053; 81025; 85007; 85025; 85610; 87522

== ENCOUNTER → 2018-11-04 09:38 | Outpatient (CLI) | payer MEDICAID, SELFPAY ==
[2018-11-04 09:56] LABS: Basophils # 0.1 K/mm3 (0-0.2); Basophils % 0.8 % (0.1-2.0); Eosinophils # 0.2 K/mm3 (0.0-0.4); Eosinophils % 2.3 % (0.1-12.0); Hematocrit 42.3 % (37.0-47.0); Hemoglobin 13.3 g/dL (12.2-16.2); Lymphocytes # 3.5 K/mm3 (0.7-4.5); Lymphocytes % 36.9 % (10-50); Mean Corpuscular HGB Conc 31.3 g/dL (31.8-35.4); Mean Corpuscular Hemoglobin 30.1 pg (27.0-31.2); Mean Platelet Volume 7.1 fl (7.4-10.4); Monocytes # 0.5 K/mm3 (0.1-1.0); Monocytes % 5.8 % (1.7-9.3); Neutrophils # 5.1 K/mm3 (1.8-7.8); Neutrophils % 54.3 % (37.0-80.0); Platelet Count 556 K/mm3 (142-424); Red Blood Count 4.41 M/mm3 (4.20-5.40); Red Cell Distribution Width 14.1 % (11.5-17.5); Urine Pregnancy, HCG Qual. Negative (Negative); White Blood Count 9.4 K/mm3 (4.8-10.8)
[2018-11-04 10:40] LABS: Alanine Aminotransferase 20 U/L (12-78); Albumin Level 3.7 gm/dL (3.4-5.0); Albumin/Globulin Ratio 0.9 (1.1-1.8); Alkaline Phosphatase 73 U/L (46-116); Anion Gap 14.3 mEq/L (5-15); Aspartate Amino Transferase 16 U/L (15-37); Bilirubin,Total 0.3 mg/dL (0.2-1.0); Blood Urea Nitrogen 7 mg/dL (7-18); Calcium 9.1 mg/dL (8.5-10.1); Carbon Dioxide 27 mmol/L (21.0-32.0); Chloride 103 mmol/L (98-107); Creatinine,Serum 0.63 mg/dL (0.55-1.02); Estimated Glomerular Filt Rate 101 ml/min (>60); GFR (African American) 123 ML/MIN (>60); Globulin 4.1 gm/dl (1.3-3.2); Glucose 111 mg/dL (74-106); Potassium 4.3 mmoL/L (3.5-5.1); Sodium 140 mmol/L (136-145); Total Protein,Serum 7.8 gm/dL (6.4-8.2)
== END ==
PROVIDERS: Visit Provider Internal Medicine
DX: B19.20 Unspecified viral hepatitis C without hepatic coma (principal); Z79.899 Other long term (current) drug therapy
CPT/HCPCS: 36415; 80053; 81025; 85025; 87522

== ENCOUNTER → 2019-01-03 11:51 | Outpatient (CLI) | payer MEDICAID, SELFPAY ==
[2019-01-03 12:14] LABS: Urine Pregnancy, HCG Qual. Negative (Negative)
[2019-01-03 12:24] LABS: INR 1.09 (0.9-1.1); Prothrombin Time 11.2 seconds (9.4-11.8)
[2019-01-03 13:37] LABS: Alanine Aminotransferase 17 U/L (12-78); Albumin Level 3.9 gm/dL (3.4-5.0); Alkaline Phosphatase 73 U/L (46-116); Aspartate Amino Transferase 16 U/L (15-37); Bilirubin,Total 0.3 mg/dL (0.2-1.0); Blood Urea Nitrogen 10 mg/dL (7-18); Calcium 9.2 mg/dL (8.5-10.1); Carbon Dioxide 27 mmol/L (21.0-32.0); Chloride 103 mmol/L (98-107); Creatinine,Serum 0.52 mg/dL (0.55-1.02); Estimated Glomerular Filt Rate 126 ml/min (>60); GFR (African American) 153 ML/MIN (>60); Globulin 4.1 gm/dl (1.3-3.2); Glucose 114 mg/dL (74-106); Sodium 142 mmol/L (136-145)
[2019-01-03 14:04] LABS: Basophils # 0.1 K/mm3 (0-0.2); Basophils % 0.5 % (0.1-2.0); Eosinophils # 0.1 K/mm3 (0.0-0.4); Eosinophils % 0.8 % (0.1-12.0); Hematocrit 41.7 % (37.0-47.0); Lymphocytes # 3.8 K/mm3 (0.7-4.5); Lymphocytes % 34.6 % (10-50); Mean Corpuscular HGB Conc 31.1 g/dL (31.8-35.4); Mean Corpuscular Hemoglobin 29.6 pg (27.0-31.2); Mean Corpuscular Volume 95.2 fl (81-99); Mean Platelet Volume 7.8 fl (7.4-10.4); Monocytes # 0.7 K/mm3 (0.1-1.0); Monocytes % 6.4 % (1.7-9.3); Neutrophils # 6.3 K/mm3 (1.8-7.8); Neutrophils % 57.8 % (37.0-80.0); Platelet Count 663 K/mm3 (142-424); Red Blood Count 4.38 M/mm3 (4.20-5.40); Red Cell Distribution Width 15.1 % (11.5-17.5); White Blood Count 10.9 K/mm3 (4.8-10.8)
== END ==
PROVIDERS: Visit Provider Internal Medicine
DX: B19.20 Unspecified viral hepatitis C without hepatic coma (principal); Z79.899 Other long term (current) drug therapy
CPT/HCPCS: 36415; 80053; 81025; 85025; 85610; 87522

== ENCOUNTER → 2019-02-24 08:57 | Outpatient (CLI) | payer MEDICAID, SELFPAY ==
--- NOTE | 2019-02-24 08:59 | MM_ITS ---
MM Dig screening mamm BI w/CAD ORDERING PHYSICIAN : Jace Cat MD PATIENT AGE: 48 years GENDER: Female COMPARISON: November 2016; May 2015; March 2015. [place] INDICATION: Routine: SCREENING TECHNIQUE: Standard CC and MLO images were obtained. R2 CAD reviewed. FINDINGS: The dense heterogeneous pattern bilaterally decreases the sensitivity of mammography . Ultrasound can be useful compliment and augment mammography breast of this increased density particularly if any palpable areas arise. . Thus some breast examination and provider breast exam on may be useful for follow-up as well No suspicious or unique dominant mass. No suspicious calcifications RIGHT BREAST: No new areas of significant concern. Patchy Dense breast pattern most evident towards upper-outer quadrant again observed and overall appears stable LEFT BREAST: No new areas of significant concern. Again dense heterogeneous breast tissue distributed mainly towards upper-outer quadrant region observed IMPRESSION: ......... No new areas of significant concern Bilateral follow-up one year adequate and recommended Stable bilateral mammogram--Again noting areas of dense heterogeneous breast tissue most evident towards upper outer quadrant bilaterally again noted. Mammography is of decreased sensitivity areas in these areas of dense tissue. (Ultrasound can be useful compliment/augment to mammography screening areas of dense breast tissue, and particularly useful if any palpable areas arise.) BI-RADS Category: 2 Benign Finding(s) RECOMMENDED FOLLOW-UP: 1YR 1 YEAR FOLLOW-UP Bilateral follow-up mammogram early February 2020 recommended (A letter has been sent to the patient regarding results of the study.)
== END ==
PROVIDERS: PCP Internal Medicine Adolescent Medicine; Visit Provider Internal Medicine Adolescent Medicine
DX: Z12.31 Encounter for screening mammogram for malignant neoplasm of breast (principal)
CPT/HCPCS: 77067

== ENCOUNTER → 2019-03-24 16:27 | Outpatient (CLI) | payer MEDICAID, SELFPAY ==
[2019-03-24 17:28] LABS: INR 1.06 (0.9-1.1)
[2019-03-24 17:30] LABS: Urine Pregnancy, HCG Qual. Negative (Negative)
[2019-03-24 19:34] LABS: Alanine Aminotransferase 19 U/L (12-78); Albumin Level 3.9 gm/dL (3.4-5.0); Albumin/Globulin Ratio 1.1 (1.1-1.8); Alkaline Phosphatase 78 U/L (46-116); Anion Gap 17.2 mEq/L (5-15); Aspartate Amino Transferase 17 U/L (15-37); Bilirubin,Total 0.2 mg/dL (0.2-1.0); Blood Urea Nitrogen 7 mg/dL (7-18); Calcium 8.9 mg/dL (8.5-10.1); Carbon Dioxide 24 mmol/L (21.0-32.0); Chloride 105 mmol/L (98-107); Creatinine,Serum 0.65 mg/dL (0.55-1.02); Estimated Glomerular Filt Rate 98 ml/min (>60); GFR (African American) 118 ML/MIN (>60); Globulin 3.6 gm/dl (1.3-3.2); Glucose 114 mg/dL (74-106); Potassium 4.2 mmoL/L (3.5-5.1); Sodium 142 mmol/L (136-145); Total Protein,Serum 7.5 gm/dL (6.4-8.2)
[2019-03-27 12:19] LABS: HCV Genotype Charge YES
== END ==
PROVIDERS: Visit Provider Internal Medicine
DX: R74.8 Abnormal levels of other serum enzymes (principal); Z79.899 Other long term (current) drug therapy
CPT/HCPCS: 36415; 80053; 81025; 82776; 85610; 87522; 87902

== ENCOUNTER → 2019-03-28 12:41 | Outpatient (CLI) | payer MEDICAID, SELFPAY ==
[2019-03-28 13:31] LABS: Basophils # 0.1 K/mm3 (0-0.2); Basophils % 0.6 % (0.1-2.0); Eosinophils # 0.2 K/mm3 (0.0-0.4); Eosinophils % 2.4 % (0.1-12.0); Hematocrit 38.4 % (37.0-47.0); Hemoglobin 11.6 g/dL (12.2-16.2); Lymphocytes # 2.8 K/mm3 (0.7-4.5); Lymphocytes % 31.9 % (10-50); Mean Corpuscular HGB Conc 30.3 g/dL (31.8-35.4); Mean Corpuscular Hemoglobin 27.9 pg (27.0-31.2); Mean Corpuscular Volume 91.9 fl (81-99); Mean Platelet Volume 7.4 fl (7.4-10.4); Monocytes # 0.4 K/mm3 (0.1-1.0); Neutrophils # 5.3 K/mm3 (1.8-7.8); Neutrophils % 60.1 % (37.0-80.0); Platelet Count 550 K/mm3 (142-424); Red Blood Count 4.17 M/mm3 (4.20-5.40); Red Cell Distribution Width 14.8 % (11.5-17.5); White Blood Count 8.9 K/mm3 (4.8-10.8)
== END ==
PROVIDERS: Visit Provider Internal Medicine
DX: R74.8 Abnormal levels of other serum enzymes (principal); B19.20 Unspecified viral hepatitis C without hepatic coma; Z79.899 Other long term (current) drug therapy
CPT/HCPCS: 36415; 85025

== ENCOUNTER → 2019-05-06 13:00 | Outpatient (CLI) | payer MEDICAID, SELFPAY ==
--- NOTE | 2019-05-06 13:09 | XR_ITS ---
XR knee LT 3V HISTORY: ITS.REASON: LT KNEE PAIN ORDERING PHYSICIAN: Jace Cat MD PATIENT AGE: 49 years COMPARISON: None FINDINGS: There are mild tricompartmental osteoarthritic changes with a moderate to large size suprapatellar effusion. No fracture or dislocation. No lytic or blastic change. A small area of exostosis is noted along the proximal posterior aspect of the fibula IMPRESSION: Moderate to large size knee joint effusion in the suprapatellar region with mild osteoarthritis
== END ==
PROVIDERS: PCP Internal Medicine Adolescent Medicine; Visit Provider Internal Medicine Adolescent Medicine
DX: M25.562 Pain in left knee (principal)
CPT/HCPCS: 73562

== ENCOUNTER → 2019-05-29 10:46 | Outpatient (CLI) | payer MEDICAID, SELFPAY ==
--- NOTE | 2019-05-29 10:52 | XR_ITS ---
XR knee LT 4V HISTORY: Left knee pain ITS.REASON: knee pain ORDERING PHYSICIAN: Lorena Gallardo MD PATIENT AGE: 49 years COMPARISON: 05/06/2019 FINDINGS: There are mild osteoarthritic changes of the left knee involving all 3 compartments not significant changed. There is a moderate to large size knee joint effusion in the suprapatellar region. No fracture or dislocation. No lytic or blastic change. There is mild lateral patellar subluxation. IMPRESSION: Moderate osteoarthritic change with moderate size knee joint effusion
== END ==
PROVIDERS: PCP Internal Medicine Adolescent Medicine; Visit Provider Orthopaedic Surgery
DX: M25.562 Pain in left knee (principal)
CPT/HCPCS: 73564

== ENCOUNTER → 2019-09-03 13:46 | Outpatient (CLI) | payer OTHER, SELFPAY ==
[2019-09-03 14:20] LABS: Basophils % 0.3 % (0.1-2.0); Eosinophils # 0.1 K/mm3 (0.0-0.4); Eosinophils % 0.8 % (0.1-12.0); Hemoglobin 12.4 g/dL (12.2-16.2); Lymphocytes # 3.7 K/mm3 (0.7-4.5); Lymphocytes % 36.9 % (10-50); Mean Corpuscular HGB Conc 31.8 g/dL (31.8-35.4); Mean Corpuscular Hemoglobin 31.2 pg (27.0-31.2); Mean Corpuscular Volume 98.2 fl (81-99); Mean Platelet Volume 9.4 fl (7.4-10.4); Monocytes # 0.4 K/mm3 (0.1-1.0); Monocytes % 4.2 % (1.7-9.3); Neutrophils # 5.7 K/mm3 (1.8-7.8); Neutrophils % 57.8 % (37.0-80.0); Platelet Count 586 K/mm3 (142-424); Red Blood Count 3.97 M/mm3 (4.20-5.40); Red Cell Distribution Width 14.2 % (11.5-17.5); White Blood Count 9.9 K/mm3 (4.8-10.8)
[2019-09-03 14:57] LABS: Alanine Aminotransferase 13 U/L (12-78); Albumin Level 3.7 gm/dL (3.4-5.0); Albumin/Globulin Ratio 1.1 (1.1-1.8); Alkaline Phosphatase 69 U/L (46-116); Anion Gap 15.3 mEq/L (5-15); Aspartate Amino Transferase 14 U/L (15-37); Bilirubin,Total 0.3 mg/dL (0.2-1.0); Blood Urea Nitrogen 6 mg/dL (7-18); Calcium 8.6 mg/dL (8.5-10.1); Carbon Dioxide 25 mmol/L (21.0-32.0); Chloride 104 mmol/L (98-107); Chol/HDL Ratio 4.2 (1-3.5); Cholesterol 182 mg/dL (140-200); Creatinine,Serum 0.47 mg/dL (0.55-1.02); Estimated Glomerular Filt Rate 141 ml/min (>60); Free T4 (Free Thyroxine) 1.08 ng/dl (0.76-1.46); GFR (African American) 171 ML/MIN (>60); Globulin 3.5 gm/dl (1.3-3.2); Glucose 106 mg/dL (74-106); HDL Cholesterol 43 mg/dL (29-89); LDL Cholesterol 113 mg/dL (0-130); Potassium 4.3 mmoL/L (3.5-5.1); Sodium 140 mmol/L (136-145); Thyroid Stimulating Hormone 2.56 uIU/ml (0.358-3.740); Total Protein,Serum 7.2 gm/dL (6.4-8.2); Triglycerides 131 mg/dL (30-200); VLDL Cholesterol 26 mg/dL (0-40)
[2019-09-04 08:13] LABS: Vitamin D 25 Hydroxy 11.6 ng/mL (30.0-100.0)
== END ==
PROVIDERS: Visit Provider Emergency Medicine
DX: R53.83 Other fatigue (principal); I10 Essential (primary) hypertension; E55.9 Vitamin D deficiency, unspecified; E66.3 Overweight; M19.90 Unspecified osteoarthritis, unspecified site; B19.20 Unspecified viral hepatitis C without hepatic coma; Z72.0 Tobacco use; Z90.81 Acquired absence of spleen
CPT/HCPCS: 80053; 80061; 82652; 84439; 84443; 85025

== ENCOUNTER → 2020-06-09 15:12 | Outpatient (CLI) | payer OTHER, SELFPAY ==
[2020-06-09 15:50] LABS: Chloride 109 mmol/L (98-107); Potassium 4.1 mmoL/L (3.5-5.1); Sodium 141 mmol/L (136-145)
[2020-06-09 15:53] LABS: Alanine Aminotransferase 13 U/L (12-78); Albumin Level 3.6 g/dl (3.5-5.0); Albumin/Globulin Ratio 1.1 (1.1-1.8); Alkaline Phosphatase 69 U/L (38-126); Anion Gap 9.1 mEq/L (5-15); Aspartate Amino Transferase 23 U/L (14-36); Bilirubin,Total 0.3 mg/dl (0.2-1.3); Blood Urea Nitrogen 6 mg/dl (7-17); Carbon Dioxide 27 mmol/L (22.0-30.0); Cholesterol 187 mg/dl (140-200); Estimated Glomerular Filt Rate 170 ml/min (>60); GFR (African American) 205 ML/MIN (>60); Globulin 3.3 g/dL (1.3-3.2); Glucose 119 mg/dl (74-100); Total Protein,Serum 6.9 g/dl (6.3-8.2); Triglycerides 93 mg/dl (30-150); VLDL Cholesterol 19 mg/dL (0-40)
[2020-06-09 15:54] LABS: HDL Cholesterol 44 mg/dl (40-60)
[2020-06-09 16:05] LABS: Basophils # 0.1 K/mm3 (0-0.2); Basophils % 0.4 % (0.1-2.0); Direct LDL Cholesterol 128.24 mg/dL (100-129); Eosinophils # 0.1 K/mm3 (0.0-0.4); Eosinophils % 0.9 % (0.1-12.0); Hematocrit 36.9 % (37.0-47.0); Hemoglobin 12.5 g/dL (12.2-16.2); Lymphocytes # 2.9 K/mm3 (0.7-4.5); Mean Corpuscular HGB Conc 33.9 g/dL (31.8-35.4); Mean Corpuscular Hemoglobin 34.3 pg (27.0-31.2); Mean Corpuscular Volume 101.1 fl (81-99); Monocytes # 0.6 K/mm3 (0.1-1.0); Monocytes % 4.6 % (1.7-9.3); Neutrophils # 9.1 K/mm3 (1.8-7.8); Platelet Count 528 K/mm3 (142-424); Red Blood Count 3.65 M/mm3 (4.20-5.40); Red Cell Distribution Width 13.4 % (11.5-17.5); White Blood Count 12.8 K/mm3 (4.8-10.8)
[2020-06-09 16:10] LABS: 25-OH Vitamin D, Total 42.4 ng/mL (30-100)
[2020-06-09 16:11] LABS: Free T4 (Free Thyroxine) 1.14 ng/dl (0.78-2.19)
[2020-06-09 16:25] LABS: Thyroid Stimulating Hormone 1.26 uIU/mL (0.465-4.68)
[2020-06-09 19:24] LABS: Chol/HDL Ratio 4.3 (1-3.5)
== END ==
PROVIDERS: Visit Provider Emergency Medicine
DX: I10 Essential (primary) hypertension (principal); E55.9 Vitamin D deficiency, unspecified
CPT/HCPCS: 80053; 80061; 82306; 84439; 84443; 85025

== ENCOUNTER 2022-02-23 11:00 | Outpatient (RCR) | payer OTHER, SELFPAY | END 2022-03-23 10:27 | disposition home or self-care (01) | LOC: PT.CARL 11:00 | PROVIDERS: PCP Emergency Medicine; Visit Provider Emergency Medicine | DX: M47.812 Spondylosis without myelopathy or radiculopathy, cervical region (principal); M54.2 Cervicalgia | CPT/HCPCS: 20560; 97010; 97014; 97035; 97110; 97140; 97163; G0283 ==

== ENCOUNTER 2024-01-12 04:26 | Observation (INO) | payer OTHER, SELFPAY ==
[2024-01-12] VITALS (11 sets, daily range): BP systolic 103–145; BP diastolic 51–95; PULSE 70–104; RESP 14–26; TEMP 36.5–36.9; O2SAT 94–99; BMI 21.6; BMI 21.0
--- NOTE | 2024-01-12 04:32 | XR_ITS ---
PROCEDURE INFORMATION: Exam: XR Chest Exam date and time: 01/12/2024 4:50 AM Age: 53 years old Clinical indication: Other: Overdose TECHNIQUE: Imaging protocol: Radiologic exam of the chest. Views: 1 view. COMPARISON: CR CXR2V XR chest 2V 10/25/2017 3:52 PM FINDINGS: Lungs: Linear/granular opacities within the right middle lobe. Pleural spaces: Unremarkable. No pleural effusion. No pneumothorax. Heart/Mediastinum: Unremarkable. No cardiomegaly. Bones/joints: Scattered degenerative changes of the visualized osseous structures. Intraperitoneal space: Multiple surgical clips are again appreciated in the left upper quadrant. IMPRESSION: Right middle lobe linear/granular infiltration, may represent atelectasis and/or aspiration. Superimposed infection can not be ruled out.
--- NOTE | 2024-01-12 04:32 | CT_ITS ---
PROCEDURE INFORMATION: Exam: CT Head Without Contrast Exam date and time: 01/12/2024 4:50 AM Age: 53 years old Clinical indication: Other: Overdose TECHNIQUE: Imaging protocol: Computed tomography of the head without contrast. Radiation optimization: All CT scans at this facility use at least one of these dose optimization techniques: automated exposure control; mA and/or kV adjustment per patient size (includes targeted exams where dose is matched to clinical indication); or iterative reconstruction. COMPARISON: No relevant prior studies available. FINDINGS: Brain: Pineal gland calcifications. Cerebral ventricles: Choroid plexus calcifications. Paranasal sinuses: Visualized sinuses are unremarkable. No fluid levels. Mastoid air cells: Visualized mastoid air cells are well aerated. Bones/joints: Unremarkable. No acute fracture. Soft tissues: Unremarkable. Vasculature: Moderate atherosclerotic disease of the bilateral intracranial internal carotid arteries. IMPRESSION: No acute intracranial findings.
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
--- NOTE | 2024-01-12 04:39 | ECG_ITS ---
APPROVED REPORT Exam: Resting ECG HR:93 bpm ECG Measurements Heart Rate 93 AXES IN 139 P 56 QRSd 76 QRS 39 QT 371 T 38 QTc 422 Conclusion SINUS RHYTHM MODERATE ST DEPRESSION [0.05+ mV ST DEPRESSION] ABNORMAL ECG No STEMI or STEMI equivalent Electronically signed by : WILLA PACHECO, 01/12/2024 06:59:00
[2024-01-12 04:45] LABS: Lactate Venous 1.1 mmol/L (0.4-2.0); VBG Base Excess 3.8 mmol/L (-2.4-2.3); VBG HCO3 29.5 mmol/L (23-30); VBG Oxygen Saturation 45.6 % (50-70); VBG PH 7.35 mmol/L (7.31-7.41); VBG PO2 24.1 mmol/L (28-40); VBG Total CO2 31.2 mmol/L (23-27)
[2024-01-12] MEDS: LACTATED RINGERS 1000ML 1,000 ML 999 ML IV (04:45)
[2024-01-12] MEDS: SODIUM CHLORIDE 0.9% 10ML FLUSH SYRINGE 10 ML IV (04:45)
[2024-01-12 04:47] LABS: VBG PCO2 55.1 mmol/L (35-51)
[2024-01-12 04:48] LABS: Basophils # 0.2 K/mm3 (0-0.2); Basophils % 1.3 % (0.1-2.0); Eosinophils # 0.4 K/mm3 (0.0-0.4); Eosinophils % 2.5 % (0.1-12.0); Hemoglobin 13.4 g/dL (12.2-16.2); Lymphocytes # 4.7 K/mm3 (0.7-4.5); Mean Corpuscular HGB Conc 30.4 g/dL (31.8-35.4); Mean Corpuscular Hemoglobin 30.2 pg (27.0-31.2); Mean Corpuscular Volume 99.5 fl (81-99); Mean Platelet Volume 7.7 fl (7.4-10.4); Monocytes # 0.9 K/mm3 (0.1-1.0); Monocytes % 6.2 % (1.7-9.3); Neutrophils # 8.2 K/mm3 (1.8-7.8); Platelet Count 825 K/mm3 (142-424); Red Blood Count 4.42 M/mm3 (4.20-5.40); Red Cell Distribution Width 14.6 % (11.5-17.5); White Blood Count 14.4 K/mm3 (4.8-10.8)
--- NOTE | 2024-01-12 04:49 | PC.NURSE ---
urine collected and sent to lab
--- NOTE | 2024-01-12 04:49 | PC.NURSE ---
patient to radiology
[2024-01-12 04:52] LABS: Microscopic, Urine URINE MICROSCOPIC (MICROSCOPIC)
[2024-01-12 04:53] LABS: Appearance,Urine CLEAR (Clear); Bilirubin,Urine Negative (Negative); Blood, Urine Negative (Negative); Color,Urine YELLOW (Yellow); Glucose,Urine (UA) Negative (Negative); Ketones,Urine Negative (Negative); Leukocyte Esterase,Urine 2+ (Negative); Nitrate,Urine POSITIVE (Negative); PH,Urine 6.5 (5.0-8.5); Protein,Urine Negative (Negative); Urobilinogen,Urine 0.2 EU/dl (0.2)
[2024-01-12 05:04] LABS: Bacteria,Urine 2+ /lpf; RBC,Urine Occasional #/hpf (0-3); WBC,Urine 50-100 #/hpf (0-3)
[2024-01-12 05:05] LABS: Barbiturates Screen,Urine Negative ng/ml (<200); Benzodiazepines Screen,Urine Positive ng/ml (<200)
[2024-01-12 05:06] LABS: Amphetamine/Metha Screen,Urine Negative ng/ml (<1000); Cannabinoid Screen,Urine Negative ng/ml (<50)
[2024-01-12 05:06] LABS: Acetaminophen < 10 ug/ml (10-30); Ethyl Alcohol < 10 mg/dl (0-10)
[2024-01-12 05:07] LABS: Cocaine Screen,Urine Negative ng/ml (<300)
[2024-01-12 05:08] LABS: Methadone Screen,Urine Negative ng/ml (<300); Opiate Screen,Urine Negative ng/ml (<300)
[2024-01-12 05:09] LABS: Phencyclidine Screen,Urine Negative ng/ml (<25)
[2024-01-12 05:10] LABS: Salicylate 7.8 mg/dL (2.0-20.0)
[2024-01-12 05:12] LABS: Chloride 105 mmol/L (98-107); Potassium 4.2 mmoL/L (3.5-5.1); Sodium 143 mmol/L (136-145)
[2024-01-12 05:14] LABS: Blood Urea Nitrogen 7 mg/dl (7-17)
[2024-01-12 05:15] LABS: Alanine Aminotransferase 16 U/L (12-78); Albumin Level 4.1 g/dl (3.5-5.0); Albumin/Globulin Ratio 0.9 (1.1-1.8); Alkaline Phosphatase 160 U/L (38-126); Anion Gap 5.2 mEq/L (5-15); Aspartate Amino Transferase 32 U/L (14-36); Bilirubin,Total 0.3 mg/dl (0.2-1.3); Carbon Dioxide 37 mmol/L (22.0-30.0); Creatinine Clearance Estimated 93 mL/min (50-200); Estimated Glomerular Filt Rate 105 ml/min (>60); GFR (African American) 127 ML/MIN (>60); Globulin 4.7 g/dL (1.3-3.2); Glucose 105 mg/dl (74-100); Total Protein,Serum 8.8 g/dl (6.3-8.2)
--- NOTE | 2024-01-12 05:26 | PC.NURSE ---
pressure bag applied to IV bag per MD request
[2024-01-12 05:28] LABS: Troponin I < 0.01 ng/ml (0.00-0.034)
--- NOTE | 2024-01-12 05:51 | PC.NURSE ---
patient continues to require oxygen supplementation at 2lpm.
--- NOTE | 2024-01-12 06:05 | PC.NURSE ---
Attempted report. RN did not answer
--- NOTE | 2024-01-12 06:06 | PC.NURSE ---
Called 2nd floor charge to find receiving RN to call me back
[2024-01-12] MEDS: 0.9 % SODIUM CHLORIDE 1000ML 1,000 ML 125 ML IV ×2 (06:08→15:21)
[2024-01-12] MEDS: AZITHROMYCIN 250MG TABLET 500 MG PO (06:08)
[2024-01-12] MEDS: AMOXICILLIN/CLAVULANATE POTASSIUM 875/125MG TABLET 1 EACH PO (06:08)
--- NOTE | 2024-01-12 06:16 | PC.NURSE ---
Called 2nd floor charge because RN has not called ER back to receive report. ED charge notified
--- NOTE | 2024-01-12 06:24 | PC.NURSE ---
Report given to [facility]; Awaiting transport now
--- NOTE | 2024-01-12 06:31 | PC.NURSE ---
received phone report from candy rn/ed nurse at 0625. PATIENT IS A 53 YO FEMALE ACCIDENTAL OVER DOSE, AMS, CAP. TO TRANSPORT BY STRETCHER.
--- NOTE | 2024-01-12 06:35 | PC.NURSE ---
pt arrived to floor at this time
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
[2024-01-12 07:30] LABS: Basophils # 0.1 K/mm3 (0-0.2); Basophils % 0.5 % (0.1-2.0); Eosinophils # 0.2 K/mm3 (0.0-0.4); Eosinophils % 0.8 % (0.1-12.0); Hematocrit 35.4 % (37.0-47.0); Lymphocytes # 2.4 K/mm3 (0.7-4.5); Lymphocytes % 11.7 % (10-50); Mean Corpuscular HGB Conc 30.6 g/dL (31.8-35.4); Mean Corpuscular Hemoglobin 29.8 pg (27.0-31.2); Mean Corpuscular Volume 97.1 fl (81-99); Monocytes # 0.7 K/mm3 (0.1-1.0); Monocytes % 3.5 % (1.7-9.3); Neutrophils # 17.3 K/mm3 (1.8-7.8); Neutrophils % 83.4 % (37.0-80.0); Platelet Count 766 K/mm3 (142-424); Red Blood Count 3.64 M/mm3 (4.20-5.40); Red Cell Distribution Width 14.8 % (11.5-17.5); White Blood Count 20.7 K/mm3 (4.8-10.8)
[2024-01-12 07:36] LABS: MANUAL DIFFERENTIAL MANUAL DIFFERENTIAL (MANUAL DIFF)
[2024-01-12 07:38] LABS: Alanine Aminotransferase 20 U/L (12-78); Albumin Level 3.4 g/dl (3.5-5.0); Albumin/Globulin Ratio 0.9 (1.1-1.8); Alkaline Phosphatase 127 U/L (38-126); Anion Gap 8.9 mEq/L (5-15); Aspartate Amino Transferase 29 U/L (14-36); Bilirubin,Total 0.2 mg/dl (0.2-1.3); Blood Urea Nitrogen 7 mg/dl (7-17); Calcium 8.9 mg/dl (8.4-10.2); Carbon Dioxide 27 mmol/L (22.0-30.0); Chloride 108 mmol/L (98-107); Creatinine Clearance Estimated 111 mL/min (50-200); Estimated Glomerular Filt Rate 130 ml/min (>60); GFR (African American) 157 ML/MIN (>60); Globulin 3.7 g/dL (1.3-3.2); Glucose 132 mg/dl (74-100); Magnesium 1.9 mg/dl (1.6-2.3); Potassium 3.9 mmoL/L (3.5-5.1); Sodium 140 mmol/L (136-145); Total Protein,Serum 7.1 g/dl (6.3-8.2)
[2024-01-12 08:43] LABS: Troponin I < 0.01 ng/ml (0.00-0.034)
[2024-01-12] MEDS: CEFTRIAXONE SODIUM 1 GM in 0.9 % SODIUM CHLORIDE 50 ML IV (09:24)
[2024-01-12 09:47] LABS: Lymphocytes % 17 % (10-50); Monocytes % 1 % (2-9); Neutrophils % 82 % (42-76); Platelet Estimate Marked Increase; RBC Morphology Normal; Total Cells Counted 100
[2024-01-12 10:25] LABS: Hemoglobin 10.9 g/dL (12.2-16.2)
[2024-01-12 12:02] LABS: Troponin I < 0.01 ng/ml (0.00-0.034)
--- NOTE | 2024-01-12 13:02 | P.HP_ITS ---
History of Present Illness *Admission Date: 01/12/24 *Reason for visit:: AMS *History of present illness: Patient is a 53-year-old female with past medical history of substance abuse hepatitis C hypertension tobacco use who presents to the hospital due to overdose of benzodiazepines. Patient was found unresponsive at home, reportedly patient takes Xanax, Neurontin. per family it could be accidental overdose as patient had recent changes in her medication. At time of my evaluation patient is sleepy, difficult to arouse. However maintaining her airways and vital signs. Patient had several rounds of Narcan in the emergency department. [facility] Disclaimer: The information contained in this section may have been updated after the patient was seen, as this information can be updated by other users. Social History (Updated 01/12/24 @ 05:59 by Allen Rodriguez MD) Smoking Status: Current every day smoker tobacco type: cigarettes alcohol intake: never substance use type: marijuana, methamphetamine and prescription drug current occupational status: disabled Travel in the last 8 weeks: None Review of Systems Review of Systems Review of systems:: unable to obtain Review of systems (narrative): as per HPI Constitutional Constitutional: Denies headache(s) and Denies weakness ENT Ears, Nose, Mouth, and Throat: Denies dizziness and Denies headache(s) *Musculoskeletal Musculoskeletal: Denies numbness and Denies tingling *Neurologic Neurologic: Denies dizziness, Denies headache(s), Denies numbness, Denies tingling and Denies weakness Meds Home Medications and Allergies Home Medications Medication Instructions Recorded Confirmed Type albuterol sulfate 90 mcg/actuation 2 inh inhalation Q4-6H PRN 01/12/24 01/12/24 History aerosol inhaler (Ventolin HFA) Shortness Of Breath Or Wheezing alprazolam 1 mg tablet 0.5 - 1 mg PO BIDP PRN Anxiety 01/12/24 01/12/24 History cetirizine 10 mg tablet 10 mg PO DAILY ALLEGIES 01/12/24 01/12/24 History cholecalciferol (vitamin D3) 25 25 mcg PO DAILY Supplement 01/12/24 01/12/24 History mcg (1,000 unit) tablet cyclobenzaprine 10 mg tablet 5 - 10 mg PO Q8HP PRN MUSCLE SPASMS 01/12/24 01/12/24 History escitalopram oxalate 20 mg tablet 20 mg PO DAILY Depression 01/12/24 01/12/24 History ferrous sulfate 325 mg (65 mg 325 mg PO DAILY IRON SUPPLEMENT 01/12/24 01/12/24 History iron) tablet (FeroSul) gabapentin 600 mg tablet 600 mg PO DAILY NEUROPATHY 01/12/24 01/12/24 History ibuprofen 800 mg tablet 800 mg PO TIDP PRN Pain 01/12/24 01/12/24 History metoprolol succinate 25 mg 25 mg PO DAILY HEART RATE/BLOOD 01/12/24 01/12/24 History tablet,extended release 24 hr PRESSURE montelukast 10 mg tablet 10 mg PO DAILY INFLAMMATION 01/12/24 01/12/24 History nitrofurantoin 100 mg PO DAILY ANTIBIOTIC 01/12/24 01/12/24 History monohydrate/macrocrystals 100 mg capsule omeprazole 20 mg capsule,delayed 20 mg PO DAILY GERD 01/12/24 01/12/24 History release umeclidinium 62.5 mcg-vilanterol 1 inh inhalation DAILY Copd 01/12/24 01/12/24 History 25 mcg/actuation powdr for inhalation (Anoro Ellipta) New Prescriptions to Start Prescriptions: Allergies Allergy/AdvReac Type Severity Reaction Status Date / Time Iodinated Contrast Media Allergy Unknown I-ITCHING Verified 06/09/20 11:09 [Iodinated Contrast Media - IV Dye] Exam Data for Last 24 hours Vital signs and Labs for Last 24 Hours: Temp Pulse Resp BP Pulse Ox O2 Del Method O2 Flow Rate 98.5 F 90 25 H 145/73 H 96 Room Air 2 01/12/24 07:33 01/12/24 12:00 01/12/24 07:33 01/12/24 07:33 01/12/24 07:33 01/12/24 09:00 01/12/24 05:01 Laboratory Results - last 24 hr 01/12/24 04:32: VBG pH 7.35, VBG pCO2 55.1 H, VBG pO2 24.1 L, VBG HCO3 29.5, VBG Total CO2 31.2 H, VBG O2 Saturation 45.6 L, VBG Base Excess 3.8 H, VBG Lactic Acid 1.1 01/12/24 04:37: WBC 14.4 H, RBC 4.42, Hgb 13.4, Hct 44.0, MCV 99.5 H, MCH 30.2, MCHC 30.4 L, RDW 14.6, Plt Count 825 H, MPV 7.7, Neut % (Auto) 57.0, Lymph % (Auto) 33.0, [place] % (Auto) 6.2, Eos % (Auto) 2.5, Baso % (Auto) 1.3, Neut # (Auto) 8.2 H, Lymph # (Auto) 4.7 H, [place]ferro # (Auto) 0.9, Eos # (Auto) 0.4, Baso # (Auto) 0.2, Sodium 143, Potassium 4.2, Chloride 105, Carbon Dioxide 37 H, Anion Gap 5.2, BUN 7, Creatinine 0.60, Estimated Creat Clear 93, Estimated GFR 105, Est GFR ( Amer) 127, Glucose 105 H, Calcium 10.0, Total Bilirubin 0.3, AST 32, ALT 16, Alkaline Phosphatase 160 H, Troponin I < 0.01, Total Protein 8.8 H D, Albumin 4.1, Globulin 4.7 H, Albumin/Globulin Ratio 0.9 L, Salicylates 7.8, Acetaminophen < 10 L, Plasma/Serum Alcohol < 10 01/12/24 04:45: Urine Color Yellow, Urine Appearance Clear, Urine pH 6.5, Ur Specific [place] 1.010, Urine Protein Negative, Urine Glucose (UA) Negative, Urine Ketones Negative, Urine Blood Negative, Urine Nitrate Positive, Urine Bilirubin Negative, Urine Urobilinogen 0.2, Ur Leukocyte Esterase 2+ A, Urine RBC Occasional, Urine WBC 50-100, Ur Squamous Epith Cells 10-20, Urine Bacteria 2+, Urine Opiates Screen Negative, Urine Methadone Screen Negative, Ur Allyson ituates Screen Negative, Ur Phencyclidine Scrn Negative, Ur Amphetamines Screen Negative, U Benzodiazepines Scrn Positive H, Urine Cocaine Screen Negative, U Marijuana (THC) Screen Negative 01/12/24 07:00: WBC 20.7 H* D, RBC 3.64 L, Hgb 10.9 L D, Hct 35.4 L, MCV 97.1, MCH 29.8, MCHC 30.6 L, RDW 14.8, Plt Count 766 H, MPV 8.0, Neut % (Auto) 83.4 H, Lymph % (Auto) 11.7, [place]ferro % (Auto) 3.5, Eos % (Auto) 0.8, Baso % (Auto) 0.5, Neut # (Auto) 17.3 H, Lymph # (Auto) 2.4, [place]fer[place] # (Auto) 0.7, Eos # (Auto) 0.2, Baso # (Auto) 0.1, Total Counted 100, Neutrophils % (Manual) 82 H, Lymphocytes % (Manual) 17, Monocytes % (Manual) 1 L, Platelet Estimate Marked increase, RBC Morphology Normal, Sodium 140, Potassium 3.9, Chloride 108 H, Carbon Dioxide 27, Anion Gap 8.9, BUN 7, Creatinine 0.50 L, Estimated Creat Clear 111, Estimated GFR 130, Est GFR ( Amer) 157 D, Glucose 132 H D, Calcium 8.9, Magnesium 1.9, Total Bilirubin 0.2, AST 29, ALT 20, Alkaline Phosphatase 127 H, Troponin I < 0.01, Total Protein 7.1, Albumin 3.4 L D, Globulin 3.7 H, Albumin/Globulin Ratio 0.9 L 01/12/24 11:05: Troponin I < 0.01 I & O for Last 24 hours: Intake & Output 01/09/24 01/10/24 01/11/24 01/12/24 23:59 23:59 23:59 23:59 Intake Total 360 / 360 Output Total 0 / 0 Balance 360 / 360 Weight 51.965 kg Constitutional Constitutional: no acute distress and somnolent *Routine HEENT Exam Head: Present normocephalic Eye: Present EOMI and PERRL ENT: Present mucous membranes moist *Routine Neck Exam Neck: Present supple; Absent lymphadenopathy *Routine Respiratory Exam Respiratory: Present CTA bilaterally *Routine Cardiovascular Exam Cardiovascular: Present RRR *Routine Abdominal Exam Abdominal: Present soft and normoactive bowel sounds; Absent tenderness *Routine Rectal Exam Rectal:: deferred *Routine Genitalia Exam Genitalia:: deferred *Routine Extremities Exam Extremities: Absent cyanosis, clubbing or edema *Routine Skin Exam Skin: Present warm; Absent rash *Routine Neurological Exam Comments: not following commands, sleepy Assessment and Plan *Assessment and plan (1) Polysubstance abuse: Status: Acute Category: Medical Code(s): F19.10 - Other psychoactive substance abuse, uncomplicated (2) Overdose: Status: Acute Category: Medical Code(s): T50.901A - Poisoning by unspecified drugs, medicaments and biological substances, accidental (unintentional), initial encounter (3) Pneumonia involving right lung: Status: Acute Qualifiers: Lung location: unspecified part of lung Pneumonia type: due to unspecified organism Qualified Code(s): J18.9 - Pneumonia, unspecified organism Category: Medical Code(s): J18.9 - Pneumonia, unspecified organism (4) HTN (hypertension): Status: Acute Qualifiers: Hypertension type: essential hypertension Qualified Code(s): I10 - Essential (primary) hypertension Category: Medical Code(s): I10 - Essential (primary) hypertension Plan Patient is a 53-year-old female with past medical history of substance abuse hepatitis C hypertension tobacco use who presents to the hospital due to overdose of benzodiazepines. Patient was found unresponsive at home, reportedly patient takes Xanax, Neurontin. per family it could be accidental overdose as patient had recent changes in her medication. At time of my evaluation patient is sleepy, difficult to arouse. However maintaining her airways and vital signs. Patient had several rounds of Narcan in the emergency department. Assessment and plan Drug overdose, likely accidental acute toxic Encephalopathy History of substance abuse s/p narcan, somnolent but maintaining airways, vital signs Monitor for withdrawal Discussed with family, they are not sure that how many tablets patient ingested Urine drug screen positive for benzodiazepines Urinary tract infection Start IV Rocephin Gentle IV fluid therapy Leukocytosis-likely reactive Chest x-ray is concerning for right middle lobe infiltrate concerning for aspiration Will start anaerobic coverage Unasyn, patient is already on Rocephin History of COPD DuoNebs DVT prophylaxis-Lovenox
[2024-01-12] MEDS: AMPICILLIN SODIUM/SULBACTAM 3 GM in 0.9 % SODIUM CHLORIDE 100 ML IV ×2 (15:22→19:33)
[2024-01-12] MEDS: ACETAMINOPHEN 325MG TAB 650 MG PO (16:20)
--- NOTE | 2024-01-12 17:11 | PC.NURSE ---
pt was very lethargic and minimally responsive early in shift but has become more alert and interactive as the day has gone on. she is aox4 at this time. able to hold full and meaningful conversations. tolerating po intake well. she has been very emotional today. she was treated for headache with prn tylenol once this shift.
--- NOTE | 2024-01-12 19:53 | PC.WOUNDNOTE ---
Left side of bottom
--- NOTE | 2024-01-12 19:55 | PC.WOUNDNOTE ---
right side bottom
[2024-01-12] MEDS: PANTOPRAZOLE 40MG VIAL 40 MG IV (21:18)
[2024-01-12] MEDS: NICOTINE 21MG/24HR PATCH 21 MG TD (21:29)
[2024-01-12] MEDS: CYCLOBENZAPRINE 10MG TABLET 5 MG PO (21:29)
[2024-01-13] VITALS: BP 89/46; PULSE 90; PULSE 94; RESP 18; TEMP 36.8; O2SAT 98
[2024-01-13] MEDS: AMPICILLIN SODIUM/SULBACTAM 3 GM in 0.9 % SODIUM CHLORIDE 100 ML IV ×2 (00:16→06:01)
[2024-01-13 01:19] VITALS: BP 98/62
[2024-01-13] MEDS: 0.9 % SODIUM CHLORIDE 1000ML 1,000 ML 125 ML IV (02:24)
[2024-01-13] MEDS: IBUPROFEN 800 MG TABLET PO (02:26)
[2024-01-13 04:00] VITALS: PULSE 90; BMI 21.2
[2024-01-13 04:28] VITALS: BP 122/70; PULSE 91; RESP 18; TEMP 36.8; O2SAT 99
--- NOTE | 2024-01-13 04:58 | PC.NURSE ---
Pt is alert and oriented. Pt has rested well through the night. Pt has complained of pain one time, treated per mar. Pt is incontinent, uses brief. Placed a purewick due to saturation of optifoam pad to gluteus, purewick working. Stage 4 to left gluteus clean, optifoam pad applied. Stage 1 to right gluteus clean. Pt left lower extremity red and 2+ pitting edema. Pt remains room air, O2 sat >90%. Abdomen nontender and soft. Pt has had no other complaints throughout shift. Call light in reach.
[2024-01-13 08:00] VITALS: BP 121/79; PULSE 80; PULSE 94; RESP 17; TEMP 36.7; O2SAT 97
[2024-01-13] MEDS: CEFTRIAXONE SODIUM 1 GM in 0.9 % SODIUM CHLORIDE 50 ML IV (08:03)
[2024-01-13 09:59] LABS: Basophils # 0.2 K/mm3 (0-0.2); Basophils % 1.2 % (0.1-2.0); Eosinophils # 0.4 K/mm3 (0.0-0.4); Eosinophils % 2.8 % (0.1-12.0); Lymphocytes # 5.9 K/mm3 (0.7-4.5); Lymphocytes % 46.9 % (10-50); Mean Corpuscular HGB Conc 30.6 g/dL (31.8-35.4); Mean Corpuscular Hemoglobin 30.5 pg (27.0-31.2); Mean Corpuscular Volume 99.7 fl (81-99); Mean Platelet Volume 7.8 fl (7.4-10.4); Monocytes # 0.7 K/mm3 (0.1-1.0); Monocytes % 5.3 % (1.7-9.3); Neutrophils # 5.5 K/mm3 (1.8-7.8); Neutrophils % 43.8 % (37.0-80.0); Platelet Count 732 K/mm3 (142-424); Red Blood Count 3.61 M/mm3 (4.20-5.40); Red Cell Distribution Width 14.6 % (11.5-17.5); White Blood Count 12.6 K/mm3 (4.8-10.8)
[2024-01-13 10:04] LABS: Chloride 113 mmol/L (98-107)
[2024-01-13 10:05] LABS: Potassium 4.3 mmoL/L (3.5-5.1); Sodium 140 mmol/L (136-145)
[2024-01-13 10:08] LABS: Anion Gap 3.3 mEq/L (5-15); Blood Urea Nitrogen 4 mg/dl (7-17); Calcium 8.5 mg/dl (8.4-10.2); Carbon Dioxide 28 mmol/L (22.0-30.0); Creatinine Clearance Estimated 108 mL/min (50-200); Estimated Glomerular Filt Rate 130 ml/min (>60); GFR (African American) 157 ML/MIN (>60); Glucose 93 mg/dl (74-100)
--- NOTE | 2024-01-13 10:41 | EXP.DC.SUM ---
General Admission date:: 01/12/24 Discharge date: 01/13/24 HPI HPI HPI: Patient is a 53-year-old female with past medical history of substance abuse hepatitis C hypertension tobacco use who presents to the hospital due to overdose of benzodiazepines. Patient was found unresponsive at home, reportedly patient takes Xanax, Neurontin. per family it could be accidental overdose as patient had recent changes in her medication. At time of my evaluation patient is sleepy, difficult to arouse. However maintaining her airways and vital signs. Patient had several rounds of Narcan in the emergency department. Hospital Course Hospital Course Hospital Course: Patient was seen and evaluated at the bedside on the day of discharge. Patient wishes to be discharged. All patient questions were answered and patient was given time to ask questions. Patient was discharged in stable condition. Patient understands that she can return to ER in case of any sudden changes in health. Total time spent on DC - 38 mins Patient is a 53-year-old female with past medical history of substance abuse hepatitis C hypertension tobacco use who presents to the hospital due to overdose of benzodiazepines. Patient was found unresponsive at home, reportedly patient takes Xanax, Neurontin. per family it could be accidental overdose as patient had recent changes in her medication. At time of my evaluation patient is sleepy, difficult to arouse. However maintaining her airways and vital signs. Patient had several rounds of Narcan in the emergency department. Drug overdose, likely accidental - improved, hold xanax acute toxic Encephalopathy - improved History of substance abuse s/p narcan, somnolent - improved Urinary tract infection - dc on amoxicillin Leukocytosis-likely reactive - improving, DC on amoxicillin Exam Data for Last 24 hours Vital signs and Labs for Last 24 Hours: Temp Pulse Resp BP Pulse Ox O2 Del Method O2 Flow Rate 98.0 F 94 H 17 121/79 97 Room Air 2 01/13/24 08:00 01/13/24 08:00 01/13/24 08:00 01/13/24 08:00 01/13/24 08:00 01/13/24 09:00 01/12/24 05:01 Laboratory Results - last 24 hr 01/12/24 11:05: Troponin I < 0.01 01/13/24 09:45: WBC 12.6 H D, RBC 3.61 L, Hgb 11.0 L, Hct 36.0 L, MCV 99.7 H, MCH 30.5, MCHC 30.6 L, RDW 14.6, Plt Count 732 H, MPV 7.8, Neut % (Auto) 43.8, Lymph % (Auto) 46.9, [place] % (Auto) 5.3, Eos % (Auto) 2.8, Baso % (Auto) 1.2, Neut # (Auto) 5.5, Lymph # (Auto) 5.9 H, [place] # (Auto) 0.7, Eos # (Auto) 0.4, Baso # (Auto) 0.2, Sodium 140, Potassium 4.3, Chloride 113 H, Carbon Dioxide 28, Anion Gap 3.3 L, BUN 4 L D, Creatinine 0.50 L, Estimated Creat Clear 108, Estimated GFR 130, Est GFR ( Amer) 157, Glucose 93, Calcium 8.5 I & O for Last 24 hours: Intake & Output 01/10/24 01/11/24 01/12/24 01/13/24 23:59 23:59 23:59 23:59 Intake Total 780 / 780 1740 / 1740 Output Total 0 / 0 300 / 300 Balance 780 / 780 1440 / 1440 Weight 51.965 kg 52.163 kg Constitutional Constitutional: no acute distress *Routine HEENT Exam Head: Present normocephalic Eye: Present EOMI and PERRL ENT: Present mucous membranes moist *Routine Neck Exam Neck: Present supple; Absent lymphadenopathy *Routine Respiratory Exam Respiratory: Present CTA bilaterally *Routine Cardiovascular Exam Cardiovascular: Present RRR *Routine Abdominal Exam Abdominal: Present soft and normoactive bowel sounds; Absent tenderness *Routine Extremities Exam Extremities: Absent cyanosis, clubbing or edema Comments: RLE is amputated *Routine Skin Exam Skin: Present warm; Absent rash *Routine Neurological Exam Neurological: Present alert and oriented X3 Results Data Completed and Pending Labs on day of discharge: Labs from last 24 hours 01/13/24 01/12/24 09:45 11:05 WBC 12.6 H D RBC 3.61 L Hgb 11.0 L Hct 36.0 L MCV 99.7 H MCH 30.5 MCHC 30.6 L RDW 14.6 Plt Count 732 H MPV 7.8 Neut % (Auto) 43.8 Lymph % (Auto) 46.9 [place] % (Auto) 5.3 Eos % (Auto) 2.8 Baso % (Auto) 1.2 Neut # (Auto) 5.5 Lymph # (Auto) 5.9 H [place] # (Auto) 0.7 Eos # (Auto) 0.4 Baso # (Auto) 0.2 Sodium 140 Potassium 4.3 Chloride 113 H Carbon Dioxide 28 Anion Gap 3.3 L BUN 4 L D Creatinine 0.50 L Estimated Creat Clear 108 Estimated GFR 130 Est GFR ( Amer) 157 Glucose 93 Calcium 8.5 Troponin I < 0.01 DS: Diagnosis Discharge Diagnosis (1) Polysubstance abuse: Status: Acute Code(s): F19.10 - Other psychoactive substance abuse, uncomplicated (2) Overdose: Status: Acute Code(s): T50.901A - Poisoning by unspecified drugs, medicaments and biological substances, accidental (unintentional), initial encounter (3) Pneumonia involving right lung: Status: Acute Code(s): J18.9 - Pneumonia, unspecified organism Qualifiers: Lung location: unspecified part of lung Pneumonia type: due to unspecified organism Qualified Code(s): J18.9 - Pneumonia, unspecified organism (4) HTN (hypertension): Status: Acute Code(s): I10 - Essential (primary) hypertension Qualifiers: Hypertension type: essential hypertension Qualified Code(s): I10 - Essential (primary) hypertension Meds Home Medications and Allergies Home Medications Medication Instructions Recorded Confirmed Type albuterol sulfate 90 mcg/actuation 2 inh inhalation Q4-6H PRN 01/12/24 01/12/24 History aerosol inhaler (Ventolin HFA) Shortness Of Breath Or Wheezing alprazolam 1 mg tablet 0.5 - 1 mg PO BIDP PRN Anxiety 01/12/24 01/12/24 History cetirizine 10 mg tablet 10 mg PO DAILY ALLEGIES 01/12/24 01/12/24 History cholecalciferol (vitamin D3) 25 25 mcg PO DAILY Supplement 01/12/24 01/12/24 History mcg (1,000 unit) tablet cyclobenzaprine 10 mg tablet 5 - 10 mg PO Q8HP PRN MUSCLE SPASMS 01/12/24 01/12/24 History escitalopram oxalate 20 mg tablet 20 mg PO DAILY Depression 01/12/24 01/12/24 History ferrous sulfate 325 mg (65 mg 325 mg PO DAILY IRON SUPPLEMENT 01/12/24 01/12/24 History iron) tablet (FeroSul) gabapentin 600 mg tablet 600 mg PO DAILY NEUROPATHY 01/12/24 01/12/24 History ibuprofen 800 mg tablet 800 mg PO TIDP PRN Pain 01/12/24 01/12/24 History metoprolol succinate 25 mg 25 mg PO DAILY HEART RATE/BLOOD 01/12/24 01/12/24 History tablet,extended release 24 hr PRESSURE montelukast 10 mg tablet 10 mg PO DAILY INFLAMMATION 01/12/24 01/12/24 History nitrofurantoin 100 mg PO DAILY ANTIBIOTIC 01/12/24 01/12/24 History monohydrate/macrocrystals 100 mg capsule omeprazole 20 mg capsule,delayed 20 mg PO DAILY GERD 01/12/24 01/12/24 History release umeclidinium 62.5 mcg-vilanterol 1 inh inhalation DAILY Copd 01/12/24 01/12/24 History 25 mcg/actuation powdr for inhalation (Anoro Ellipta) amoxicillin 875 mg-potassium 1 tab PO Q12H 7 days #14 tabs 01/13/24 Rx clavulanate 125 mg tablet New Prescriptions to Start Prescriptions: amoxicillin-pot clavulanate Javier Alejandra Allergies Allergy/AdvReac Type Severity Reaction Status Date / Time Iodinated Contrast Media Allergy Unknown I-ITCHING Verified 06/09/20 11:09 [Iodinated Contrast Media - IV Dye] Discharge Plan Disposition Patient Disposition: Home Health Service Condition: Fair Discharge Order Discharge Orders: Discharge Order (Routine); Ordered 01/13/24 Ordered By: Javier Alejandra Follow up Plan Follow up with: Delores Gage [Primary Care Provider] - 2 weeks Prescriptions/Medication Reconciliation: New amoxicillin-pot clavulanate 875-125 mg tablet 1 tab PO Q12H 7 Days Qty: 14 0RF Continued cyclobenzaprine 10 mg tablet 5 - 10 mg PO Q8HP PRN (Reason: MUSCLE SPASMS) Patient Comments: TAKE 1/2 TO 1 TABLET BY MOUTH EVERY 8 HOURS NEEDED FOR SPASMS/ BACK PAIN gabapentin 600 mg tablet 600 mg PO DAILY cetirizine 10 mg tablet 10 mg PO DAILY ibuprofen 800 mg tablet 800 mg PO TIDP PRN (Reason: Pain) Patient Comments: TAKE 1 TABLET BY MOUTH 3 TIMES DAILY WITH FOOD OR MILK NEEDED FOR PAIN ferrous sulfate [FeroSul] 325 mg (65 mg iron) tablet 325 mg PO DAILY omeprazole 20 mg capsule,delayed release(DR/EC) 20 mg PO DAILY Patient Comments: TAKE ONE CAPSULE BY MOUTH ONCE A DAY montelukast 10 mg tablet 10 mg PO DAILY metoprolol succinate 25 mg tablet extended release 24 hr 25 mg PO DAILY albuterol sulfate [Ventolin HFA] 90 mcg/actuation HFA aerosol inhaler 2 inh INHALATION Q4-6H PRN (Reason: Shortness Of Breath Or Wheezing) Patient Comments: INHALE TWO (2) PUFFS BY MOUTH EVERY 4-6 HOURS NEEDED escitalopram oxalate 20 mg tablet 20 mg PO DAILY Patient Comments: TAKE ONE TABLET BY MOUTH ONCE A DAY nitrofurantoin monohyd/m-cryst 100 mg capsule 100 mg PO DAILY cholecalciferol (vitamin D3) 25 mcg (1,000 unit) tablet 25 mcg PO DAILY Anoro Ellipta 62.5-25 mcg/actuation blister with device 1 inh INHALATION DAILY Held alprazolam 1 mg tablet 0.5 - 1 mg PO BIDP PRN (Reason: Anxiety) Hold Instructions: Resume on 01/20/24. Patient Comments: TAKE 1/2-1 TABLET BY MOUTH TWICE DAILY NEEDED FOR ANXIETY TO BE TAKEN WITH ESCITALOPRAM Problem Reconciliation Problems Reviewed?: Yes Patient Discharge Instructions ACTIVITY: Ambulate as tolerated DIET: continue same diet Patient Instructions: DI for Pneumonia -- Adult, DI for Urinary Tract Infection (UTI), DI for Drug Overdose in Adults Providers Primary Care Provider: Delores Gage Admit Provider: Renny Lyle Attending Provider: Renny Lyle
--- NOTE | 2024-01-14 08:10 | SW/DCPLANNER ---
I received an order for home health services for this patient. Due to patient's location and insurance home health services are not available at this time.
--- NOTE | 2024-01-14 15:48 | SW/DCPLANNER ---
Follow up hospital discharge phone call unsuccessful due to not a working phone number in the chart.
== END 2024-01-13 12:08 | disposition home health service (06) ==
LOC: ER 05:55 → 2ND 05:59
PROVIDERS: Internal Medicine; Nurse Practitioner Family; Admitting Provider Internal Medicine Adolescent Medicine; Emergency Provider Emergency Medicine; PCP Emergency Medicine; Visit Provider Internal Medicine Adolescent Medicine
DX: T50.901A Poisoning by unspecified drugs, medicaments and biological substances, accidental (unintentional), initial encounter (principal); F17.210 Nicotine dependence, cigarettes, uncomplicated; Z79.899 Other long term (current) drug therapy; J18.9 Pneumonia, unspecified organism; I10 Essential (primary) hypertension; F19.10 Other psychoactive substance abuse, uncomplicated; G82.20 Paraplegia, unspecified; L89.159 Pressure ulcer of sacral region, unspecified stage; Z89.512 Acquired absence of left leg below knee; G92.9 Unspecified toxic encephalopathy; B19.20 Unspecified viral hepatitis C without hepatic coma
CPT/HCPCS: 36415; 70450; 71045; 80048; 80053; 80307; 80329; 81001; 82803; 83735; 84484; 85007; 85025; 87086; 93005; 99285; G0378; J0696